=== PATIENT | male | born 1950 | race Caucasian/White ===

== ENCOUNTER 2021-02-15 06:40 | Day surgery (SDC) | payer BC, MEDICARE ==
[2021-02-15] MEDS ORDERED: Lidocaine 1% PF 2 ML SDV INJECT ONE (06:41)
[2021-02-15] MEDS ORDERED: Propofol 200 MG/20 ML SDV IV ONE (06:41)
[2021-02-15] MEDS ORDERED: Sodium Chloride 0.9% 10 ML Syringe FLUSH PRN ×2 (06:45→09:15)
[2021-02-15] MEDS ORDERED: Lactated Ringers 1,000 ML IV SCH ×2 (06:45→09:15)
--- NOTE | 2021-02-15 08:24 | PCM.OPNOTE ---
- General Post-Op/Procedure Note Date of Surgery/Procedure: 02/15/21 Operative Procedure(s): c scope with biopsy cold forcep Findings: ascending colon polyp x 2 (cecum and mid ascending colon) sigmoid diverticulosis Pre Op Diagnosis: screening Post-Op Diagnosis: ascending colon polyp x 2 (cecum and mid ascending colon). sigmoid diverticulosis Anesthesia Technique: MAC Primary Surgeon: Ag Lisa Anesthesia Provider: Pieter Child Pathology: colon polyp x2 Complications: None Condition: Good Free Text/Narrative:: see dictation#[id number]
--- NOTE | 2021-02-15 10:58 | OR ---
DATE OF OPERATION: 02/15/2021 SURGEON: Ag Lisa MD PROCEDURE PERFORMED: Colonoscopy with cold forceps biopsy. PREOPERATIVE DIAGNOSIS: Need for colon cancer screening. POSTOPERATIVE DIAGNOSES: Ascending colon polyps x2 and sigmoid diverticulosis. INDICATIONS FOR PROCEDURE: This is a 70-year-old white male who presents for screening colonoscopy. He was without complaint. He was offered and accepted same. DESCRIPTION OF OPERATION: After an excellent IV sedation was administered, digital rectal exam was performed. No marked abnormality was noted. Flexible colonoscope was inserted and advanced to the cecum. Prep was excellent. The following findings were noted. Ascending colon; in the cecum, small 3 mm polyp biopsied with cold biopsy forceps, submitted for permanent. In the mid ascending colon, a small 4 mm polyp biopsied with cold biopsy forceps, base obliterated, and was submitted for pathologic examination as well. The remainder of the ascending colon was unremarkable. Transverse colon was unremarkable. Descending colon was unremarkable. Sigmoid, a total of 2 diverticula were noted. Rectum and anus, unremarkable. Colon was deflated as the scope was removed. Results will be sent to the patient via letter. /[id number] /MODL
== END 2021-02-15 09:11 | disposition home or self-care (01) ==
LOC: FB.SDS 06:40
PROVIDERS: ATTEND Surgery
DX: Z12.11 Encounter for screening for malignant neoplasm of colon (principal); K63.5 Polyp of colon; K57.30 Diverticulosis of large intestine without perforation or abscess without bleeding; Z79.899 Other long term (current) drug therapy; Z79.82 Long term (current) use of aspirin
CPT/HCPCS: 00812-QZ; 88305; J2704; J7120

== ENCOUNTER 2025-05-30 07:18 | Inpatient (IN) | payer MEDICARE ==
[2025-05-30] MEDS: Sodium Chloride 0.9% 10 ML Syringe FLUSH PRN (07:35)
[2025-05-30] MEDS: Nitroglycerin 0.4 MG Tab.SL SL PRN (07:40)
[2025-05-30 07:41] LABS: BASOPHILS ABSOLUTE AUTO 0.0 x10-3/uL (0.0-0.3); BASOPHILS PERCENT AUTO 0.6 % (0.3-3.8); EOSINOPHILS ABSOLUTE AUTO 0.3 x10-3/uL (0.0-0.6); EOSINOPHILS PERCENT AUTO 4.5 % (0.1-6.8); LYMPHOCYTES ABSOLUTE AUTO 1.3 x10-3/uL (0.5-4.5); LYMPHOCYTES PERCENT AUTO 17.3 % (15.8-45.3); MEAN PLATELET VOLUME 7.9 fL (6.7-11.0); MONOCYTES ABSOLUTE AUTO 0.7 x10-3/uL (0.0-1.2); MONOCYTES PERCENT AUTO 9.0 % (5.5-15.2); NEUTROPHILS ABSOLUTE AUTO 5.1 x10-3/uL (1.7-6.9); NEUTROPHILS PERCENT AUTO 68.6 % (40.3-71.8); PLATELET COUNT,PLT 238 x10(3)uL (117-477); RED BLOOD CELL COUNT 4.70 x10(6)uL (3.90-5.90); RED CELL DISTRIBUTION WIDTH 12.8 % (12.4-15.0); WHITE BLOOD CELL COUNT,WBC 7.4 x10-3/uL (3.2-10.1)
[2025-05-30] MEDS: Ketorolac 30 MG/ML SDV IVPUSH ONE (07:43)
[2025-05-30] MEDS ORDERED: Nitroglycerin 0.4 MG Tab.SL SL SCH (07:45)
[2025-05-30 07:46] LABS: BLOOD UREA NITROGEN,BUN 19 mg/dL (7-18); CARBON DIOXIDE,CO2 30 mmol/L (21-32); CHLORIDE,CL 103 mmol/L (100-110); CREATININE 1.2 mg/dL (0.70-1.30); EST CRCL DRUG DOSING (CG) 57.17 mL/min; ESTIMATED GFR 63 mL/min (>60); GLUCOSE RANDOM 109 mg/dL (80-116); POTASSIUM,K 4.5 mmol/L (3.5-5.3); SODIUM,NA 140 mmol/L (135-145)
[2025-05-30 07:52] LABS: A/G RATIO 0.9; ALANINE AMINOTRANSFERASE,ALT 31 U/L (12-36); ASPARTATE AMNIOTRANSFERASE,AST 16 IU/L (5-25); BILIRUBIN TOTAL 0.9 mg/dL (0.1-1.3); PROTEIN TOTAL,TP 7.5 g/dL (6.0-8.0)
[2025-05-30] MEDS: Iopamidol 755 Mg/ML 100 ML Bottle IV SCH (08:28)
[2025-05-30] MEDS: Heparin Sodium 5,000 Units/ML Vial IV ONE (09:07)
[2025-05-30] MEDS: Heparin Sodium/0.45% NaCl 25,000 UNITS/500 ML BAG IV SCH (09:08)
[2025-05-30] MEDS ORDERED: Naloxone 0.4 MG/ML SDV IVPUSH PRN (13:11)
[2025-05-30] MEDS ORDERED: Pharmacy Consult Order SCH (13:15)
[2025-05-30] MEDS ORDERED: Heparin Sodium/0.45% NaCl 25,000 UNITS/500 ML BAG IV SCH ×2 (15:00→15:30)
[2025-05-31] MEDS ORDERED: Multivitamins with Iron/Calcium/Folic Acid/Minerals Tab PO SCH (09:00)
== END 2025-05-30 17:15 | DRG 175 ==
LOC: FB.ED 07:18 → FB.MS 10:45
PROVIDERS: ADMIT Internal Medicine; ATTEND Internal Medicine
DX: I26.94 Multiple subsegmental thrombotic pulmonary emboli without acute cor pulmonale (principal); R06.89 Other abnormalities of breathing; J18.9 Pneumonia, unspecified organism; Z79.82 Long term (current) use of aspirin; Z79.899 Other long term (current) drug therapy; H54.7 Unspecified visual loss
CPT/HCPCS: 36415; 71045; 71275; 80053; 83880; 84484; 85025; 85379; 85730; 86140; 93005; A9270 ×2; J1644 ×2; J1885; Q9967; 87040; 87426-QW; 96365; 96366; 96375; 99223; 99285-25; J0456; J0696; J7050